=== PATIENT | female | born 1990 | race Caucasian/White ===

== ENCOUNTER 2018-03-02 14:36 | Emergency (ER) | payer OTHER ==
[2018-03-02] MEDS ORDERED: methylPREDNISolone SODIUM SUC 125 MG/2 ML VIAL ONE (14:41)
[2018-03-02] MEDS ORDERED: FAMOTIDINE IV PREMIX 50 ML IVPB ONE (14:42)
[2018-03-02] MEDS ORDERED: diphenhydrAMINE HCL 50 MG/ML VIAL ONE (14:42)
[2018-03-02 14:55] VITALS: TEMP 97.8; O2SAT 97
--- NOTE | 2018-03-02 15:12 | ED.PDOC ---
History of Present Illness - General Chief Complaint: Allergic Reaction Stated Complaint: Allergic reaction - hives Time Seen by Provider: 03/02/18 15:05 Source: patient Additional Information: FACIAL AND TRUNK PRURITIC RASH. SIMILAR EPISODE YESTERDAY. DENIES ANY SOB. - History of Present Illness Timing/Duration: just prior to arrival Cough Quality/Degree: moderate Possible Cause: other - SIMILAR RASH YESRTERDAY. Improving Factors: nothing Worsening Factors: nothing Associated Symptoms: denies symptoms Respiratory Risk Factors: no cause identified Allergies/Adverse Reactions: Allergies Latex Allergy (Verified 03/02/18 14:59) Other Itching, rash Home Medications: Ambulatory Orders Norethindrone (Contraceptive) [Norethindrone] 1 tablet PO DAILY 03/02/18 predniSONE 20 mg PO DAILY #5 tab 03/02/18 Review of Systems - Review of Systems Constitutional: States: other - ITCHING AND RASH EENTM: States: nose congestion, other - HEARING IMPAIRMENT Respiratory: States: no symptoms reported Cardiology: States: no symptoms reported Gastrointestinal/Abdominal: States: no symptoms reported Genitourinary: States: no symptoms reported Musculoskeletal: States: no symptoms reported Skin: States: change in color, rash Neurological: States: no symptoms reported Endocrine: States: no symptoms reported Hematologic/Lymphatic: States: no symptoms reported Past Medical History (General) - Patient Medical History Hx Seizures: No Hx Stroke: No Hx Dementia: No Hx Asthma: No Hx of COPD: No Hx Cardiac Disorders: No Hx Congestive Heart Failure: No Hx Pacemaker: No Hx Hypertension: No Hx Thyroid Disease: No Hx Diabetes: No Hx Gastroesophageal Reflux: No Hx Renal Disease: No Hx Cancer: No Hx of HIV: No Hx Hepatitis C: No Hx MRSA: No - Vaccination History Hx Tetanus, Diphtheria Vaccination: No Hx Influenza Vaccination: No Hx Pneumococcal Vaccination: No - Social History Hx Tobacco Use: No Hx Chewing Tobacco Use: No Hx Alcohol Use: No Hx Substance Use: No Hx Substance Use Treatment: No Hx Depression: No Hx Physical Abuse: No Hx Emotional Abuse: No - Female History Patient : No Family Medical History - Family History Mother Living Status: Still Living Physical Exam - Physical Exam General Appearance: Alert, Anxious, Well Developed, Well Groomed, Well Nourished Eye Exam: bilateral normal ENT Exam: other - EARS ARE RED Neck: other - ANTERIOR NECK IS FLUSHED Respiratory: lungs clear, normal breath sounds, no respiratory distress, no accessory muscle use Cardiovascular/Chest: normal peripheral pulses, regular rate, rhythm, no edema, no gallop, no JVD, no murmur Gastrointestinal/Abdominal: normal bowel sounds, non tender, soft Extremity: other - RASH TO BOTH ARMS AND THE FACE WELL Skin Exam: rash Lymphatic: no adenopathy Progress - Progress Progress: 03/02/18 15:15 THE RASH IS SIGNIFICANTLY IMPROVED. 03/02/18 15:43 REASSESSED: MUCH IMPROVED. Departure - Departure Clinical Impression: Urticaria Time of Disposition: 15:44 Disposition: Discharge to Home or Self Care Condition: Good Departure Forms: ED Discharge - Pt. Copy, Patient Portal Self Enrollment Instructions: DI for Allergic Rhinitis, Hives Diet: resume usual diet Referrals: Giuseppe Rosado MD [Primary Care Provider] - 1-2 Weeks Prescriptions: predniSONE 20 mg PO DAILY #5 tab Home Medications: Ambulatory Orders Norethindrone (Contraceptive) [Norethindrone] 1 tablet PO DAILY 03/02/18 predniSONE 20 mg PO DAILY #5 tab 03/02/18
[2018-03-02] MEDS ORDERED: methylPREDNISolone SODIUM SUC 125 MG/2 ML VIAL IV ONE ×2 (15:15→15:16)
[2018-03-02] MEDS ORDERED: FAMOTIDINE IV PREMIX 20 MG in PREMIX BAG 1 BAG IVPB ONE ×2 (15:15→15:16)
[2018-03-02] MEDS ORDERED: diphenhydrAMINE HCL 50 MG/ML VIAL IV ONE (15:16)
[2018-03-02] MEDS ORDERED: diphenhydrAMINE HCL 50 MG/ML VIAL IV SCH (15:30)
[2018-03-02 16:13] VITALS: BP 136/72
== END 2018-03-02 16:06 | disposition home or self-care (01) ==
LOC: ER 14:36
DX: L50.0 Allergic urticaria (principal)
CPT/HCPCS: 80301; 96365; 96375; 99284; J1200; J2930; J3490

== ENCOUNTER → 2018-03-23 | Outpatient (CLI) | payer BC | LOC: LAB.O 08:45 | PROVIDERS: ATTEND Nurse Practitioner Family | DX: R21 Rash and other nonspecific skin eruption (principal) ==

== ENCOUNTER 2018-11-29 06:02 | Emergency (ER) | payer SELFPAY ==
[2018-11-29] MEDS ORDERED: PROCHLORPERAZINE INJ 10 MG/2 ML VIAL IV ONE (06:19)
[2018-11-29] MEDS ORDERED: LACTATED RINGERS 1,000 ML IVS ONE (06:19)
--- NOTE | 2018-11-29 06:22 | ED.PDOC ---
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 Stated Complaint: Having a miscarriage Time Seen by Provider: 11/29/18 06:15 Source: patient Exam Limitations: no limitations - History of Present Illness Initial Comments: Lovely Rueda 28 y/o female with LMP-2nd week of August ;[id number] stated that she had vaginal bleeding and abdominal cramps which started tonight getting worse had already used seven sanitary pads;mentioned that she had been on OCP prior to getting and had vaginal spotting in September.[place] dizzy and hot Timing/Duration: this evening Quality: cramping Onset Location: vaginal Radiation: none Activites at Onset: none Prior abdominal problems: none Improving Factors: nothing Worsening Factors: nothing Associated Symptoms: other - see hpi Allergies/Adverse Reactions: Allergies Latex Allergy (Verified 03/02/18 14:59) Other Itching, rash Home Medications: Ambulatory Orders Norethindrone (Contraceptive) [Norethindrone] 1 tablet PO DAILY 03/02/18 Review of Systems - Review of Systems Gastrointestinal/Abdominal: States: see HPI Genitourinary: States: see HPI All other Systems: Reviewed and Negative, No Change from Baseline Past Medical History (General) - Patient Medical History Hx Seizures: No Hx Stroke: No Hx Dementia: No Hx Asthma: No Hx of COPD: No Hx Cardiac Disorders: No Hx Congestive Heart Failure: No Hx Pacemaker: No Hx Hypertension: No Hx Thyroid Disease: No Hx Diabetes: No Hx Gastroesophageal Reflux: No Hx Renal Disease: No Hx Cancer: No Hx of HIV: No Hx Hepatitis C: No Hx MRSA: No - Vaccination History Hx Tetanus, Diphtheria Vaccination: No Hx Influenza Vaccination: No Hx Pneumococcal Vaccination: No - Social History Hx Tobacco Use: No Hx Chewing Tobacco Use: No Hx Alcohol Use: No Hx Substance Use: No Hx Substance Use Treatment: No Hx Depression: No Hx Physical Abuse: No Hx Emotional Abuse: No - Female History Hx Last Menstrual Period: 08/28/18 Patient : No Family Medical History - Family History Mother Living Status: Still Living Hx Family Cancer: Yes - melanoma-mom Physical Exam - Physical Exam General Appearance: Anxious, No apparent distress Eyes, Ears, Nose, Throat Exam: normal ENT inspection Neck: normal inspection Cardiovascular/Respiratory: no M/R/G, normal peripheral pulses, normal breath sounds, no respiratory distress, tachycardia Gastrointestinal/Abdominal: non tender, soft, no organomegaly, other - FHT-none Pelvic Exam: other - blood clots vagina Extremity: no pedal edema, no calf tenderness Neurologic: alert, oriented x 3 Skin Exam: warm/dry, pallor Progress - Progress Progress: 11/29/18 06:31 Vital Signs - 8 hr 11/29/18 06:13 Temperature 97.7 F Pulse Rate [ 123 H Monitor] Respiratory 22 Rate Blood Pressure 134/89 [Left Arm] O2 Sat by Pulse 99 Oximetry Departure - Departure Clinical Impression: Abdominal cramps Disposition: Discharge to Home or Self Care Departure Forms: ED Discharge - Pt. Copy, Patient Portal Self Enrollment Referrals: Giuseppe Rosado MD [Primary Care Provider] - 1-2 Weeks Home Medications: Ambulatory Orders Norethindrone (Contraceptive) [Norethindrone] 1 tablet PO DAILY 03/02/18 Addendum entered and electronically signed by John Carreno MD 11/29/18 06:53: Departure - Departure Clinical Impression: Abdominal cramps Disposition: Discharge to Home or Self Care Departure Forms: ED Discharge - Pt. Copy, Patient Portal Self Enrollment Referrals: Giuseppe Rosado MD [Primary Care Provider] - 1-2 Weeks Home Medications: Ambulatory Orders Norethindrone (Contraceptive) [Norethindrone] 1 tablet PO DAILY 03/02/18 Addendum entered and electronically signed by Michele Paredes MD 11/29/18 09:45: Departure - Departure Clinical Impression: Abdominal cramps Disposition: Discharge to Home or Self Care Departure Forms: ED Discharge - Pt. Copy, Patient Portal Self Enrollment Referrals: Giuseppe Rosado MD [Primary Care Provider] - 1-2 Weeks Home Medications: Ambulatory Orders Norethindrone (Contraceptive) [Norethindrone] 1 tablet PO DAILY 03/02/18 ED Addendum - ED Addendum Addendum: Patient reported that her bleeding had almost stopped since arriving at the E.R. She received IV fluids here and said that her light-headedness had resolved. Her blood type was A+. Obstetric US showed debris in the cervical canal and uterus, likely retained products of conception. She elected to go home and continue with this miscarriage on her own. She was given E.R. warnings and follow up instructions. Care instructions given. E.R. warnings given. Questions were elicited and answered. Patient voiced understanding and agreement with the plan. Addendum entered and electronically signed by Michele Paredes MD 11/29/18 09:47: Departure - Departure Clinical Impression: Abdominal cramps Disposition: Discharge to Home or Self Care Condition: Good Departure Forms: ED Discharge - Pt. Copy, Patient Portal Self Enrollment Instructions: DI for Miscarriage Diet: resume usual diet Activity: increase activity as tolerated Referrals: Giuseppe Rosado MD [Primary Care Provider] - 1-2 Weeks Home Medications: Ambulatory Orders Norethindrone (Contraceptive) [Norethindrone] 1 tablet PO DAILY 03/02/18 Additional Instructions: Follow up with Dr. Rosado in the next 24 hours. Return to the E.R. or to Dr. Rosado's office for light-headedness, fainting, increased bleeding, temperature above 100.3, or if bleeding does not stop completely today.
--- NOTE | 2018-11-29 08:59 | US ---
EXAM DESCRIPTION: OB ,Early (0-14wks): Ultrasound. CLINICAL HISTORY: 28 years Female vaginal bleeding. Pelvic pain. Positive test. Obstetrical history unknown. LMP unknown. COMPARISON: None. TECHNIQUE: Transpelvic scanning through the urine filled bladder: 2-dimensional and Doppler modes. FINDINGS: Uterus: 13.1 x 6.7 x 7.6 cm. Normal vascularity. Cervix distended with debris and fluid debris level. Heterogeneous myometrium. Gestational sac: Not seen. Distended echogenic endometrial canal 8.5 mm containing debris. AFV: Not present. pole: None. Yolk sac: None. heart tones: No fetus. Subchorionic hemorrhage: None. Cul-de-sac: No fluid. Comments: Most likely missed AB with retained products of conception Right ovary 3.7 x 3.4 x 2.5 cm. 16.6 mL. Normal color Doppler vascularity. 1.1 x 1.2 cm simple cyst.. Not vascular. No adnexal mass or free fluid. Left ovary not seen. IMPRESSION: 1. Minimally distended endometrium and moderately distended cervix with debris, most likely retained products of conception from this data AB. No fluid in the cul-de-sac. Consider gynecology consult. 2. Right ovary slightly enlarged with 1.2 cm simple cyst. No adnexal mass or free fluid. Left ovary not seen. Electronically signed by: Aries Valenzuela MD 11/29/2018 8:58 AM CDT
[2018-11-29 09:43] VITALS: O2SAT 98
[2018-11-29 10:06] VITALS: BP 109/82; TEMP 97.9
== END 2018-11-29 10:00 | disposition home or self-care (01) ==
LOC: ER 06:02
DX: O99.89 Other specified diseases and conditions complicating pregnancy, childbirth and the puerperium (principal); R10.9 Unspecified abdominal pain; O26.859 Spotting complicating pregnancy, unspecified trimester; O34.80 Maternal care for other abnormalities of pelvic organs, unspecified trimester; N83.201 Unspecified ovarian cyst, right side; Z91.040 Latex allergy status
CPT/HCPCS: 36415; 76813; 80053; 84702; 84703; 85025; 86901; J0780; J7120